=== PATIENT | female | born 1950 | race Hispanic/Latino ===

== ENCOUNTER 2018-07-21 12:21 | Emergency (ER) | payer MEDICARE, BC ==
[2018-07-21 12:27] VITALS: TEMP 98.4
--- NOTE | 2018-07-21 13:23 | ED PDOC ---
HPI: General Adult Time Seen by Provider: 07/21/18 12:30 Chief Complaint (Nursing): Weakness/Neurological Deficit History Per: Patient (This is a 68 yo female who is brought to the ER because of c/o generalized weakness, sensation of faintness, chills that became prominent as she arrived in [place] after a drive from [place] where she resides. She is visiting her daughter who lives in [place]. Patient denies YAO, dizziness, nausea, vomiting, diarrhea, chest pain or abdominal pain. She does not take any meds.) History/Exam Limitations: no limitations Past Medical History Reviewed: Historical Data, Nursing Documentation, Vital Signs Vital Signs: Last Vital Signs Temp 98.4 F 07/21/18 12:24 Pulse 82 07/21/18 12:24 Resp 16 07/21/18 12:24 BP 146/75 07/21/18 12:24 Pulse Ox 98 07/21/18 12:24 - Medical History PMH: No Chronic Diseases - Surgical History Surgical History: No Surg Hx - Family History Family History: States: No Known Family Hx - Allergies Allergies/Adverse Reactions: Allergies Allergy/AdvReac Type Severity Reaction Status Date / Time No Known Allergies Allergy Verified 07/21/18 12:24 Review of Systems ROS Statement: Except As Marked, All Systems Reviewed And Found Negative Constitutional: Positive for: Chills, Weakness (generalized). Negative for: Fever Cardiovascular: Negative for: Chest Pain, Palpitations Respiratory: Negative for: Shortness of Breath Gastrointestinal: Negative for: Nausea, Vomiting, Abdominal Pain, Diarrhea Genitourinary Female: Negative for: Dysuria Neurological: Positive for: Dizziness (faintness). Negative for: Weakness, Numbness, Incoordination, Change in Speech, Confusion, Seizures, Altered Mental Status, Headache Physical Exam - Reviewed Nursing Documentation Reviewed: Yes Vital Signs Reviewed: Yes - Physical Exam Appears: Positive for: Well, Non-toxic, No Acute Distress Head Exam: Positive for: ATRAUMATIC, NORMAL INSPECTION, NORMOCEPHALIC Skin: Positive for: Normal Color, Warm, DRY Eye Exam: Positive for: EOMI, Normal appearance, PERRL ENT: Positive for: Normal ENT Inspection Neck: Positive for: Normal, Painless ROM Cardiovascular/Chest: Positive for: Regular Rate, Rhythm Respiratory: Positive for: CNT, Normal Breath Sounds Gastrointestinal/Abdominal: Positive for: Normal Exam, Soft Back: Positive for: Normal Inspection Extremity: Positive for: Normal ROM Neurologic/Psych: Positive for: Alert, Oriented - ECG O2 Sat by Pulse Oximetry: 98 Medical Decision Making Medical Decision Makin:20Patient refused workup except for EKG and accucheck. Concerns discussed with patient in the presence of her daughter. Both understand concerns regarding causes such as dehydration or infection cannot be excluded without blood tests. Advised that she may feel better with a little of IV fluids while awaiting results. Patient opts to refuse this course. Daughter has no objection to observation. 2.30p - patient appears better. Color has improved. Okay with discharge home to her daughter's care Disposition - Clinical Impression Clinical Impression: Episode of generalized weakness - Patient ED Disposition Is Patient to be Admitted: No Doctor Will See Patient In The: Office Counseled Patient/Family Regarding: Diagnosis, Need For Followup - Disposition Disposition: Routine/Home Disposition Time: 14:45 Condition: IMPROVED Instructions: Weakness (ED) Forms: [facility] ([place]er) - POA Present On Arrival: None
[2018-07-21 14:51] VITALS: BP 140/70; PULSE 83; RESP 18; O2SAT 99
== END 2018-07-21 14:49 | disposition home or self-care (01) ==
LOC: H.ER 12:21
DX: M62.81 Muscle weakness (generalized) (principal)